=== PATIENT | male | born 1990 | race Hispanic/Latino ===

== ENCOUNTER 2017-08-20 07:07 | Day surgery (SDC) | payer OTHER ==
[2017-08-19 09:45] VITALS: BMI 30.2
[2017-08-20 07:41] LABS: #Eosinphils 0.1 thou/uL (0.0-0.7); #Lymphocytes 2.2 thou/uL (1.20-3.40); #Monocytes 0.5 thou/uL (0.11-0.59); %Basophils 0.6 % (0.0-1.0); %Eosinophils 1.7 % (0.0-10.0); %Lymphocytes 37.5 % (21.0-51.0); %Monocytes 8.4 % (0.0-10.0); %Neutrophils 51.9 % (42.0-75.0); Hemoglobin 15.2 g/dL (14.0-18.0); Mean Corpuscular HGB CONC 34.3 g/dL (32.0-36.0); Mean Corpuscular Hemoglobin 32.6 pg (27.0-31.0); Mean Corpuscular Volume 94.9 fl (80.0-94.0); Mean Platelet Volume 6.3 fL (7.4-10.4); Platelet Count 399 thou/uL (130-400); RBC Distribution Width 11.2 % (11.5-14.5); Red Blood Cell (RBC) Count 4.67 mill/uL (4.70-6.10); White Blood Cell (WBC) Count 5.8 thou/uL (4.8-10.8)
[2017-08-20] MEDS ORDERED: CEFAZOLIN/Water 2 GM/20 ML SYRINGE ONE (07:53)
[2017-08-20 07:57] LABS: Anion Gap 12 mmol/L (10-20); BUN (Urea Nitrogen) 18 mg/dL (8.9-20.6); Calc. Creatinine Clearance 138 mL/min (70-130); Calcium 9.6 mg/dL (7.8-10.44); Carbon Dioxide 25 mmol/L (22-29); Chloride 104 mmol/L (98-107); Estimated GFR-MDRD Greater than 90; Glucose 97 mg/dL (70-105); Potassium 4.1 mmol/L (3.5-5.1); Sodium 137 mmol/L (136-145)
[2017-08-20] MEDS ORDERED: Fentanyl 100 MCG/2 ML VIAL ONE (08:02)
[2017-08-20] MEDS ORDERED: Midazolam HCl 2 mg/2 ml Vial ONE (08:02)
[2017-08-20] MEDS ORDERED: HYDROcodone/Acetaminophen 5/325 mg Tablet ONE (12:22)
--- NOTE | 2017-08-20 14:21 | OP ---
PREOPERATIVE DIAGNOSIS: Chronic nonunion right total. POSTOPERATIVE DIAGNOSIS: Chronic nonunion right total. PROCEDURE: Open repair of right patellar fracture. SURGEON: Rudy Rao M.D. ANESTHESIA: General. BLOOD LOSS: Minimal. DRAINS: None. COMPLICATIONS: None. DESCRIPTION OF PROCEDURE: The patient was taken to the operating room where general anesthesia was i nduced. Right leg was prepped and draped in the usual sterile fashion. I made a midline longitudina l incision, dissection carried down to the patella. I excised the scar tissue between the non-united fragments. The inferior pole had almost no articular cartilage on it and appeared to be a devascula rized fragment, so I excised this fragment. I freshened up the superior half of the patella. I then used drill and drilled holes through the patella. I used #5 Ethibond suture in a modified typ e fashion to lock sutures into the patellar tendon. The patellar tendon was then repaired to the pat sharif fracture and tied over a large bony bridge. This reinforced with #1 Vicryl sutures. At the com pletion of this, I was able to flex the knee 90 degrees and repair remained intact. The tourniquet w as released. Irrigation was performed and hemostasis obtained. Subcutaneous tissue closed with 2-0 Vicryl, the skin was closed with britton. The patient placed a sterile dressing to the wound with le g splint. There were no complications.
== END 2017-08-20 13:05 | disposition home or self-care (01) ==
LOC: SDC 07:07
PROVIDERS: ATTEND Orthopaedic Surgery
PROC: 0QSD04Z Reposition Right Patella with Internal Fixation Device, Open Approach (ICD-10-PCS; principal; 2017-08-20)
DX: S82.031K Displaced transverse fracture of right patella, subsequent encounter for closed fracture with nonunion (principal); Z87.891 Personal history of nicotine dependence
CPT/HCPCS: 36415; 80048; 85025; G8978-GP-CL; G8979-GP-CL; G8980-GP-CL; J2250; J3010

== ENCOUNTER 2023-04-18 19:30 | Emergency (ER) | payer SELFPAY ==
[2023-04-18] MEDS ORDERED: Boostrix 0.5 ML (Tdap) VIAL (>/=7 yrs of age) ONE (20:37)
[2023-04-18] MEDS ORDERED: Lidocaine 1% PF 5 ML VIAL ONE (21:34)
[2023-04-18] MEDS ORDERED: Bacitracin 1 PK ONE (21:59)
== END 2023-04-18 22:05 | disposition home or self-care (01) ==
LOC: ERS 19:30
DX: S61.012A Laceration without foreign body of left thumb without damage to nail, initial encounter (principal); X58.XXXA Exposure to other specified factors, initial encounter
CPT/HCPCS: 12002; 90471; 90715